=== PATIENT | female | born 1995 | race African-American/Black ===

== ENCOUNTER 2019-04-09 05:48 | Emergency (ER) | payer BC ==
[~2019-04-09] VITALS: Ht 162.6 cm; Wt 68.0 kg
[~2019-04-09 05:48] MED LIST: PRENATAL COMPL1 EACH PO
[2019-04-09] MEDS ORDERED: ACYCLOVIR (05:56)
[2019-04-09 05:57] VITALS: BP 132/80
[2019-04-09] MEDS ORDERED: PREDNISONE50 MG PO (06:42)
[2019-04-09] MEDS ORDERED: PROAIR HFA8.5 GM INH (06:42)
[2019-04-09 06:58] LABS: INFLUENZA A ANTIGEN Negative (Negative); INFLUENZA B ANTIGEN Negative (Negative)
== END 2019-04-09 07:02 | disposition home or self-care (01) ==
LOC: M.ERS 05:48
PROVIDERS: Emergency Medicine
DX: R06.00 Dyspnea, unspecified (principal)